=== PATIENT | female | born 1980 | race Caucasian/White ===

== ENCOUNTER 2023-03-14 06:13 | Emergency (ER) | payer MEDICARE, MEDICAID, SELFPAY ==
[2023-03-14 06:20] VITALS: BP 119/84; PULSE 89; RESP 16; TEMP 36.8; O2SAT 99; BMI 42.9
--- NOTE | 2023-03-14 06:43 | ED.GENADULT ---
HPI - General Adult General Chief complaint: Abdominal Pain Stated complaint: Abd pain Time Seen by Provider: 03/14/23 06:38 Source: patient Mode of arrival: ambulatory Limitations: no limitations History of Present Illness HPI narrative: Patient is a 42 year old assigned female at with no reported medical history presenting to the emergency department today with left upper abdominal pain and blood in her urine. Patient states that over the last 2 days she has had left upper quadrant abdominal pain. Patient states that she was seen at the urgent care where they tested her urine and found blood. Patient states they recommended she come to the ER for further evaluation. Patient denies any dizziness, lightheadedness, nausea, vomiting, fever, chills, blurry vision, double vision, loss of vision, chest pain, difficulty breathing, shortness of breath, back pain, night sweats, pain with urination, increased urinary frequency, increased urinary urgency, blood in her stool, syncope or a near syncopal episode, recent trauma or falls, bowel incontinence, bladder incontinence, bowel retention, bladder retention, or any other complaints at this time. Onset (ago): day(s) (2) Location: abdomen Severity: mild Severity scale (1-10): 3 Quality: aching Pain Consistency: constant Relieving factors: none Exacerbating factors: none Associated symptoms: denies other symptoms Treatments prior to arrival: none Related Data Allergies Allergy/AdvReac Type Severity Reaction Status Date / Time codeine Allergy Unknown RASH-FACE Unverified 02/23/20 15:18 Penicillins Allergy Unknown RASH-FACE Unverified 02/23/20 15:18 sulfamethoxazole Allergy Unknown UNKNOWN Unverified 02/23/20 15:18 [From Bactrim] trimethoprim [From Bactrim] Allergy Unknown UNKNOWN Unverified 02/23/20 15:18 Review of Systems Constitutional: Constitutional: Reports no additional constitutional complaints, Denies chills, Denies fever(s) and Denies night sweats Eyes: Eyes: Reports no additional eye complaints, Denies blurry vision, Denies change in vision, Denies diplopia, Denies eye discharge, Denies loss of vision and Denies eye pain ENT: Denies dizziness Cardiovascular: Cardiovascular: Reports no additional cardiovascular complaints, Denies chest pain, Denies lightheadedness, Denies Loss of Consciousness and Denies dyspnea Respiratory: Respiratory: Reports no additional respiratory complaints and Denies dyspnea Gastrointestinal: Gastrointestinal: Reports no additional gastrointestinal complaints, Reports abdominal pain, Denies melena, Denies hematochezia, Denies change in bowel habits and Denies change in stool character Genitourinary: Genitourinary: Reports hematuria, Denies urinary frequency, Denies dysuria, Denies urinary incontinence, Denies urinary hesitancy and Denies urinary urgency Musculoskeletal: Musculoskeletal: Reports no additional musculoskeletal complaints, Denies numbness and Denies tingling Neurologic: Denies dizziness, Denies loss of vision, Denies numbness and Denies tingling Psychiatric: Psychiatric: Reports no additional psychiatric complaints Endocrine: Endocrine: Reports no additional endocrine complaints Hematologic/Lymphatic: Hematologic/Lymphatic: Reports no additional hematologic/lymphatic complaints Allergic/Immunologic: Allergic/Immunologic: Reports no additional allergic/immunologic complaints PMFSH Past Medical History Attestation statement: The following information was validated with the patient. Source: old records reviewed and nursing notes reviewed Social History Social History Smoked in Last 30 Days: No Use of substances other than those prescribed or required for medical reasons: No Advance Directives: No Advance Directives Information Provided: Yes Physical Exam ED Vital Signs: Vital Signs - 24 hr 03/14/23 06:20 03/14/23 08:37 Temperature 98.2 F Pulse Rate 89 68 Respiratory Rate 16 16 Blood Pressure 119/84 125/83 Pulse Oximetry 99 99 Oxygen Delivery Method Room Air Room Air BMI result Body Mass Index 42.9 Const General: cooperative, no acute distress, alert and awake Nutritional Appearance: well nourished Orientation/consciousness: patient oriented x3 Limitations: no limitations [facility] Head: Yes normal to inspection and Yes atraumatic Ears: hearing grossly normal bilaterally and external ears normal General nose exam: Normal external nose present, no nasal discharge noted and no epistaxis Face and sinus: Yes normal facial exam, No abrasion and No laceration Mouth: Normal oral and palatal mucosa present, no drooling and no muffled voice Eyes General: appearance normal, both eyes and all related structures Periorbital: periorbital findings normal Eyelids: Yes eyelids normal Conjunctivae: conjunctivae normal Pupils: Equal, round and reactive pupils present EOM: EOMs intact bilaterally Neck Neck: Yes normal visual inspection, Yes full ROM and Yes no lymphadenopathy Chest Chest palpation & inspection: normal inspection of the chest Resp Effort & Inspection: normal respiratory effort and able to speak in complete sentences Auscultation: clear to auscultation bilaterally Cardio Rate: regular rate Rhythm: regular rhythm GI Inspection: Yes normal to inspection Palpation (GI): Soft to palpation, not firm, nontender, no guarding and not rigid Neuro General: patient oriented x3 and moves all extremities Cranial nerves: Yes Equal, round and reactive pupils present Cognition (Neuro): normal cognition Motor exam (neuro): 5/5 motor strength present throughout Sensory Exam: Normal double simultaneous stimulation for sensation Coordination: [id number] test normal Extrem General: Yes normal to inspection, Yes full ROM and Yes capillary refill normal Psych Appearance: grossly normal Mental Status: mental status grossly normal Affect: normal affect Attitude: cooperative Thought process: Normal thought process present Thought content: Normal thought content present Insight: Good insight present (Psych) Medical Decision Making Medical Decision Making MDM Narrative: Patient is a 42 year old assigned female at with no reported medical history presenting to the emergency department today with left upper quadrant abdominal pain and blood in her urine. Patient's physical exam was unremarkable. Patient's blood work was unremarkable. Patient's urine showed a possible infection but not evident enough to treat before cultures result. Patient's abdomen/pelvis CT showed no acute process. I explained my physical exam findings as well as all test results to the patient. I answered all questions asked by the patient. I stressed the importance of the patient taking her medication as prescribed. I stressed the importance of the patient following up with her primary care provider and GI specialist. I stressed the importance of the patient returning to the emergency department immediately if her symptoms were to worsen or if she were to develop any dizziness, shortness of breath, difficulty breathing, chest pain, blurry vision, loss of vision, nausea, vomiting, abdominal pain, fever, chills, back pain, or any other complaints. Patient verbalized agreement and understanding with this treatment plan and discharge. Differential Diagnosis Differential Diagnoses: The differential diagnosis associated with the presentation includes Abdominal pain PUD Gastritis Gastroenteritis UTI Admission/Observation Consideration of admission/observation: Escalation of care including admission/observation considered Patient would have been admitted to the hospital had her work up had any findings where hospital admission was appropriate and her clinical presentation warranted hospital admission. Lab Data [facility] Lab Attestation statement: I reviewed the patient's lab results. My interpretation of these studies and their corresponding values is that they are grossly normal with the exception of a possibly infected urine. 03/14/23 06:46 03/14/23 06:46 Labs: Lab Results 03/14/23 03/14/23 Range/Units 06:46 06:48 WBC 7.0 (4.8-10.8) X10*3/uL RBC 4.40 (4.20-5.50) X10*6/uL Hgb 14.2 (12.0-16.0) g/dl Hct 40.7 (37.0-47.0) % MCV 92.5 (80.0-98.0) fL MCH 32.3 (27.0-33.0) pg MCHC 34.9 (31.0-35.0) g/dl RDW 12.7 (11.0-16.0) % Plt Count 269 (160-400) X10*3/uL MPV 9.5 (9.4-12.3) fL Immature Gran % (Auto) 0.3 (0.0-0.4) % Neut % (Auto) 44.1 L (45-73) % Lymph % (Auto) 45.4 H (20-40) % [place] % (Auto) 5.9 (2-11) % Eos % (Auto) 3.7 (0-4) % Baso % (Auto) 0.6 (0-2) % Lymph # (Auto) 3.2 (1.2-4.9) X10*3/uL [place] # (Auto) 0.4 (0.1-1.2) X10*3/uL Eos # (Auto) 0.3 (0.0-0.4) X10*3/uL Baso # (Auto) 0.0 (0.0-0.2) X10*3/uL Abs Immat Gran (auto) 0.02 (0.00-0.03) X10*3/uL Absolute Neuts (auto) 3.1 (2.0-8.3) x10*3/uL Absolute Nucleated RBC 0.000 (0.0-0.012) X10*3/uL Nucleated RBC % (auto) 0.0 (0.0-0.2) /100WBC Sodium 136 (135-145) mmol/L Potassium 3.9 (3.3-5.1) mmol/L Chloride 104 (96-108) mmol/L Carbon Dioxide 24 (22-29) mmol/L Anion Gap 12 (12-20) BUN 12 (9-16) mg/dL Creatinine 0.69 (0.5-1.4) mg/dL Estim Creat Clear Calc 133.7 Estimated GFR > 60 Random Glucose 99 (60-115) mg/dL Calcium 8.6 (8.4-10.2) mg/dL Total Bilirubin 0.6 (0.0-1.0) mg/dL Direct Bilirubin 0.2 (0.0-0.5) mg/dL AST 24 (5-31) U/L ALT 37 H (0-31) U/L Alkaline Phosphatase 108 (39-117) U/L Total Protein 7.2 (6.5-8.0) g/dL Albumin 3.9 (3.5-5.0) g/dL Lipase 13 (8-78) U/L Urine Color Dark Yellow Urine Appearance Cloudy Urine pH 6.0 (5.0-9.0) Ur Specific [place] >= 1.030 H (1.005-1.025) Urine Protein Trace (Neg-Trace) mg/dL Urine Glucose (UA) Negative (Negative) mg/dL Urine Ketones Trace (Negative) mg/dL Urine Blood Trace H (Negative) Urine Nitrite Negative (Negative) Ur Leukocyte Esterase Negative (Negative) Urine RBC 6-10 H (0-2) /HPF Urine WBC 0-5 (0-5) /HPF Ur Squamous Epith Cells 3-5 (0-2) /HPF Urine Bacteria Trace (None Seen) Hyaline Casts 0-2 (0-2) /LPF Urine Test NEGATIVE (NEGATIVE) Independent Interpretation I performed an independent interpretation of an: CT Scan Interpretation: My interpretation is in agreement with the radiologist's impression of this imaging study. EXAMINATION: CT ABDOMEN AND PELVIS WITHOUT CONTRAST CLINICAL INFORMATION: Flank pain. COMPARISON: CT scan of the abdomen and pelvis November 2017 TECHNIQUE: Multidetector volumetric imaging was performed from the superior aspect of the liver through the pubic symphysis. Sagittal and coronal reformatted images were obtained on the technologist's workstation. This CT examination was performed using dose optimization techniques as appropriate, variously including the following: *Automated exposure control *Adjustment of mA and/or kV according to patient size (this includes techniques or standardized protocols for targeted exams where dose is matched to indication/reason for exam; i.e. extremities or head) *Use of iterative reconstruction technique DLP: 806 mGy-cm FINDINGS: LUNG BASES: The visualized lung bases are unremarkable. LIVER, GALLBLADDER, AND BILIARY TREE: The liver is normal in size, shape, and attenuation. No focal hepatic lesion or biliary ductal dilatation is present. Postsurgical changes related to cholecystectomy. PANCREAS: Unremarkable. SPLEEN: Unremarkable. ADRENAL GLANDS: Unremarkable. KIDNEYS AND URETERS: The kidneys are normal in size, shape, and attenuation. No hydronephrosis, hydroureter, or calculi seen. No perinephric stranding. BLADDER: Unremarkable. GASTROINTESTINAL TRACT: Status post gastric surgery unchanged. Small bowel normal. Large bowel are normal. Appendix normal ABDOMINAL WALL: Normal. LYMPH NODES: Normal. VASCULAR: Unremarkable. PELVIC VISCERA: Intrauterine device noted. Otherwise unremarkable. No masses. OSSEOUS STRUCTURES: Lumbar postsurgical changes present at the radial [address]/CT abdomen pelvis wo IV con IMPRESSION: No acute abnormality. No urinary tract calculi or pathology identified Fleischner guidelines were followed. Dictated By: Ang Han MD Signed By: Electronically signed by Ang Han MD 03/14/23 0856 Radiology Impression Discussion of test interpretation with radiology: I have reviewed the radiologist's reading. Discharge Plan Discharge Clinical Impression: Abdominal pain Patient Disposition: Home, Self-Care Instructions: Abdominal Pain (ED) Additional Instructions: Follow up with your primary care provider and a GI specialist. Return to the emergency department immediately if your symptoms worsen or if you develop any dizziness, shortness of breath, difficulty breathing, chest pain, blurry vision, loss of vision, nausea, vomiting, abdominal pain, fever, chills, back pain, or any other complaints. Referrals: [facility] [Provider Group] (Call to establish and follow up with a GI specialist.) Katherine Benitez MD [Primary Care Provider] - Stand Alone Forms: Work/School Release Print Language: Beninese
[2023-03-14 08:37] VITALS: BP 125/83; PULSE 68; RESP 16; O2SAT 99
== END 2023-03-14 09:12 | disposition home or self-care (01) ==
PROVIDERS: Emergency Provider Emergency Medicine Emergency Medical Services; PCP Internal Medicine
DX: R10.9 Unspecified abdominal pain (principal)
CPT/HCPCS: 36415; 74176; 80048; 80076; 81001; 81025; 83690; 85025; 99284

== ENCOUNTER 2023-03-15 10:37 | Emergency (ER) | payer MEDICARE, MEDICAID, SELFPAY ==
[2023-03-15 10:42] VITALS: BP 140/106; PULSE 113; RESP 22; TEMP 36.8; O2SAT 99; BMI 41.4
--- NOTE | 2023-03-15 11:21 | ED.ABDPAIN ---
HPI - Abdominal Pain General Chief Complaint: Abdominal Pain Stated Complaint: Abd pain Time Seen by Provider: 03/15/23 11:00 Source: patient Mode of arrival: ambulatory Limitations: no limitations History of Present Illness HPI narrative: Patient is a 42-year-old female presents emergency department for evaluation of left upper quadrant abdominal pain for the past 3 days. She states she was seen in the emergency department yesterday after coming from urgent care where she was advised that she had microscopic hematuria. She states that she had a CT scan yesterday of her abdomen which revealed no acute pathology. She was ultimately discharged home. Was advised to come back to emergency department should her pain change or worsen. She reports that her pain is much worse today and she was unable to sleep last night. It does not radiate, she is unable to to identify exacerbating or alleviating factors, she denies chest pain, endorses shortness of breath only during periods of intense pain. Does not seem to worsen with deep respiration. She appears significantly uncomfortable, tearful during my initial examination. She denies dizziness, nausea, vomiting, lower abdominal pain, symptoms, constipation, diarrhea, hematochezia, melena. Denies any past history of similar pain. Related Data Allergies Allergy/AdvReac Type Severity Reaction Status Date / Time codeine Allergy Unknown RASH-FACE Verified 03/15/23 10:44 Penicillins Allergy Unknown RASH-FACE Verified 03/15/23 10:44 sulfamethoxazole Allergy Unknown UNKNOWN Verified 03/15/23 10:44 [From Bactrim] trimethoprim [From Bactrim] Allergy Unknown UNKNOWN Verified 03/15/23 10:44 Review of Systems Review of Systems Yes all other systems are reviewed and are negative [facility] Past Medical History Attestation statement: The following information was validated with the patient. Source: old records reviewed Social History Social History Advance Directives: No Advance Directives Information Provided: Yes Physical Exam ED Vital Signs: Vital Signs - 24 hr 03/15/23 10:42 03/15/23 12:13 03/15/23 15:27 Temperature 98.2 F Pulse Rate 113 H 93 66 Respiratory Rate 22 H 22 H 16 Blood Pressure 140/106 H 144/95 H 123/84 Pulse Oximetry 99 96 98 Oxygen Delivery Method Room Air Room Air Room Air 03/15/23 19:25 Temperature 97.4 F Pulse Rate 62 Respiratory Rate 14 Blood Pressure 133/8 L Pulse Oximetry 99 Oxygen Delivery Method Room Air BMI result Body Mass Index 41.4 Appearance: Alert.?Oriented to person, place and time. No acute distress.?Normal affect. Eyes: Pupils equal, round and reactive to light.? ENT: Pharynx normal.?? Neck: Normal inspection.? Neck supple.?? CVS: Heart sounds normal. Normal heart rate and rhythm.? Pulses normal.?? Respiratory: No respiratory distress.? Lung sounds clear to auscultation bilaterally?? Abdomen: Soft with significant left upper quadrant tenderness upon even light palpation. No rigidity. No guarding. Normoactive bowel sounds. ? Skin: Skin warm and dry.? Normal skin color.? Extremities: No lower extremity edema. Neuro: Moves all extremities spontaneously. Sensation intact bilaterally. No focal neuro deficits. Ambulates with normal steady gait. Course Reevaluation(s) Reevaluation #1: GI cocktail did not alleviate pain, trialed Toradol 30 mg with significant improvement. The pain is not completely resolved however. Her D-dimer is negative not consistent with pulmonary embolism. LS CTA, no hypoxia, no respiratory symptoms, at this time less likely suspecting pneumonia, lung bases at CT abdomen pelvis yesterday were clear.. Of note she does have a mild elevation in her AST and ALT when compared to yesterday, she has a history of cholecystectomy, at this time plan to obtain ultrasound to evaluate further, possible CBD stone. Time: 13:31 Reevaluation #2: Ultrasound pending at this time, signed out to oncoming provider; Christine JAIMES. Time: 19:18 Reevaluation #3: Patient received in sign-out and tenderness shift pending ultrasound which does not show any acute pathology. Patient is requesting discharge at this time is reports feeling better and she will be discharged. Medical Decision Making Medical Decision Making MDM Narrative: Patient is a 42-year-old female presenting to emergency department for evaluation of left upper quadrant pain as per HPI. At the time my examination she appears significantly uncomfortable. She had a CT scan of the abdomen and pelvis yesterday which revealed no acute process. Concern at this time for gastritis be PUD V gastroenteritis. She is not hypoxic, she is mildly tachypneic and tachycardic, initially hypertensive, which may be in response to pain, have a lower clinical suspicion for pneumonia, will obtain D-dimer to exclude pulmonary embolism. Labs obtained from triage revealing no leukocytosis, no anemia, unremarkable BMP. Lipase is within normal limits. AST and ALT are mildly elevated when compared to levels obtained yesterday. Will trial GI cocktail Differential Diagnosis Differential Diagnoses: The differential diagnosis associated with the presentation includes (As noted above) Admission/Observation Consideration of admission/observation: Escalation of care including admission/observation considered (Considered admission for severe abdominal pain, see course narrative for further detail) Lab Data MDM Lab Attestation statement: I reviewed the patient's lab results. (As noted above) 03/15/23 10:49 03/15/23 10:49 Labs: Lab Results 03/15/23 03/15/23 03/15/23 Range/Units 10:49 12:25 12:41 WBC 8.5 (4.8-10.8) X10*3/uL RBC 4.74 (4.20-5.50) X10*6/uL Hgb 15.1 (12.0-16.0) g/dl Hct 43.4 (37.0-47.0) % MCV 91.6 (80.0-98.0) fL MCH 31.9 (27.0-33.0) pg MCHC 34.8 (31.0-35.0) g/dl RDW 12.6 (11.0-16.0) % Plt Count 297 (160-400) X10*3/uL MPV 8.9 L (9.4-12.3) fL Immature Gran % (Auto) 0.4 (0.0-0.4) % Neut % (Auto) 42.9 L (45-73) % Lymph % (Auto) 47.8 H (20-40) % [place] % (Auto) 5.8 (2-11) % Eos % (Auto) 2.7 (0-4) % Baso % (Auto) 0.4 (0-2) % Lymph # (Auto) 4.1 (1.2-4.9) X10*3/uL [place] # (Auto) 0.5 (0.1-1.2) X10*3/uL Eos # (Auto) 0.2 (0.0-0.4) X10*3/uL Baso # (Auto) 0.0 (0.0-0.2) X10*3/uL Abs Immat Gran (auto) 0.03 (0.00-0.03) X10*3/uL Absolute Neuts (auto) 3.7 (2.0-8.3) x10*3/uL Absolute Nucleated RBC 0.000 (0.0-0.012) X10*3/uL Nucleated RBC % (auto) 0.0 (0.0-0.2) /100WBC D-Dimer High Sensitivty < 150 NG/ML Sodium 138 (135-145) mmol/L Potassium 4.1 (3.3-5.1) mmol/L Chloride 106 (96-108) mmol/L Carbon Dioxide 22 (22-29) mmol/L Anion Gap 14 (12-20) BUN 12 (9-16) mg/dL Creatinine 0.79 (0.5-1.4) mg/dL Estim Creat Clear Calc 114.4 Estimated GFR > 60 Random Glucose 111 (60-115) mg/dL Calcium 9.7 D (8.4-10.2) mg/dL Total Bilirubin 0.4 (0.0-1.0) mg/dL Direct Bilirubin 0.1 (0.0-0.5) mg/dL AST 74 H (5-31) U/L ALT 74 H (0-31) U/L Alkaline Phosphatase 115 (39-117) U/L Total Protein 8.0 (6.5-8.0) g/dL Albumin 4.1 (3.5-5.0) g/dL Lipase 13 (8-78) U/L Urine Color Yellow Urine Appearance Clear Urine pH 5.5 (5.0-9.0) Ur Specific [place] 1.025 (1.005-1.025) Urine Protein Negative (Neg-Trace) mg/dL Urine Glucose (UA) Negative (Negative) mg/dL Urine Ketones Negative (Negative) mg/dL Urine Blood Negative (Negative) Urine Nitrite Negative (Negative) Ur Leukocyte Esterase Negative (Negative) Urine Test NEGATIVE (NEGATIVE) Medications Administered Discontinued Medications Generic Name Dose Route Start Last Admin Trade Name Freq PRN Reason Stop Dose Admin Famotidine 20 mg 03/15/23 11:20 03/15/23 11:24 Famotidine 20 Mg Tablet PO 03/15/23 11:21 20 mg ONCE ONE Administration Ketorolac Tromethamine 30 mg 03/15/23 12:08 03/15/23 12:23 Ketorolac Tromethamine 30 Mg/Ml Vial IVPUSH 03/15/23 12:09 30 mg ONCE ONE Administration Lidocaine/Diphenhydr/Alum/Mg/Simeth 10 ml 03/15/23 11:16 03/15/23 11:24 Mag&Al/Sim/Diphenhyd/Lidocaine 10 Ml Oral.Susp PO 03/15/23 11:17 10 ml ONCE ONE Administration Protocol Discharge Plan Discharge Clinical Impression: Abdominal pain Patient Disposition: Home, Self-Care Instructions: Abdominal Pain (ED) Additional Instructions: Follow-up with your primary doctor. You may also follow-up with GI given your recurrent abdominal pain Use ibuprofen or Tylenol as needed for pain Referrals: Jaciel Wells MD [Physician] - (upped abdominal pain, negative CT abdomen) Stand Alone Forms: Work/School Release Interventions: ED Discharge Assessment Last Done: 03/15/23 19:29 Discharge Date/Time: 03/15/23 19:29
--- NOTE | 2023-03-15 11:28 | PC.NURSE ---
Pt in room rocking back and worth holding her stomach, pt took medications ordered with no issues. She is reporting abdominal pain worsening over this morning. Pt aware she needs to give a urine sample, awaiting void
[2023-03-15 12:13] VITALS: BP 144/95; PULSE 93; RESP 22; O2SAT 96
--- NOTE | 2023-03-15 12:16 | PC.NURSE ---
Provider made aware of patient pain with no relief post PO medications, pt continues to be tearful, rolling back in worth in bed. IV placed, D-dimer sent, IV pain medication administered per order
[2023-03-15 15:27] VITALS: BP 123/84; PULSE 66; RESP 16; O2SAT 98
[2023-03-15 19:25] VITALS: BP 133/8; PULSE 62; RESP 14; TEMP 36.3; O2SAT 99
--- NOTE | 2023-03-15 19:28 | PC.NURSE ---
Pt self removed IV line. Dressing applied to the area. Discharge instructions provided to pt. Pt verbalizes understanding.
== END 2023-03-15 19:29 | disposition home or self-care (01) ==
PROVIDERS: Emergency Provider Emergency Medicine; PCP Internal Medicine
DX: R10.12 Left upper quadrant pain (principal); R31.9 Hematuria, unspecified; Z79.899 Other long term (current) drug therapy
CPT/HCPCS: 36415; 76700; 80048; 80076; 81003; 81025; 83690; 85025; 85379; 96374; 99284; J1885

== ENCOUNTER 2024-10-06 13:22 | Outpatient (REF) | payer OTHER, SELFPAY ==
[2024-10-06 14:12] LABS: Anion Gap 11 (12-20); Blood Urea Nitrogen 13 mg/dL (9-16); Calcium 8.6 mg/dL (8.4-10.2); Carbon Dioxide 22 mmol/L (22-29); Chloride 109 mmol/L (96-108); Estimated Glomerular Filt Rate > 60; Glucose Random 78 mg/dL (60-115); Potassium 4.1 mmol/L (3.3-5.1); Sodium 138 mmol/L (135-145)
[2024-10-06 14:28] LABS: TSH reflex Free T4 0.71 uIU/mL (0.32-4.0)
[2024-10-06 14:41] LABS: Vitamin B12 226 pg/mL (200-900)
--- OUTSIDE RECORDS SUMMARY | 2024-10-06 15:51 | XMS_ITS | Clinical Summary ---
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 Active acetaminophen (TYLENOL 8 HOUR) 650 mg 8 hr tablet Take 1 Tablet by mouth every 8 hours as needed for Pain. Active esomeprazole (NexIUM) [address] capsule Take 1 Capsule by mouth every morning (before breakfast) for 360 days. Active secukinumab (Cosentyx UnoReady Pen) 300 mg/2 mL (150 mg/mL) pen injector every 30 days. Activ e Active Problems Problem Noted Date Diagnosed Date Anxiety and depression 06/09/2024 Overview (06/09/2024): Psych prescribing Angiolipoma of kidney 06/09/2024 Overview (06/09/2024): 0.4 cm right interpolar to lower pole hypoechoic, nonvascular renal focus seen on abdominal ultrasound June 2019. 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 Referred to nephrology. Menorrhagia with irregular cycle 12/03/2023 Overview (06/09/2024): Last Assessment & Plan: Well managed currently with Mirena, but due to come out and given dysmenorrhea is not controlled, she desires a different method. Dysmenorrhea 12/03/2023 Overview (06/09/2024): Last Assessment & Plan: I explained to Bharti that given the timing of her pain, it is likely that a hysterectomy will be beneficial, but duet o several organ systems in the same area, sometimes this is not the case. She was counseled that she could try an oral progestin correction to avoid surgery, but she declines. She was counseled that we would plan for KELLY, BS, cysto. Leave ovaries in place for hormonal support. Discussed time off from exercise and work. She was interested in getting this scheduled. She is open to using a progestin while planning for hyst to help with debilitating pain that inteferes with her work. Given Rx for Aygestin. Discussed most common SE including BTB, headache and breast tenderness which are usually self limited. She voiced understanding and agreed. We will obtain a pelvic US as she has not had one in years to ensure no pathology causing her dysmenorrhea. Hair loss 07/22/2022 Pre-diabetes 02/06/2020 Bulging lumbar disc 01/11/2020 Overview (06/09/2024): Noted on mri 12/29/2019 Marginal ulcer 03/03/2018 Other complications of other bariatric procedure 02/18/2018 Hydradenitis 01/04/2018 Overview (06/09/2024): [facility]s [facility] Pilonidal disease 01/04/2018 Submandibular lymphadenopathy 09/24/2017 Severe obesity (BMI 35.0-39. 9) with comorbidity (CMS/HCC V24, CMS/HCC V28) 06/07/2014 Elevated LFTs 11/30/2013 IBS (irritable bowel syndrome) 10/03/2010 Lumbar spondylosis 04/15/2010 Overview (06/09/2024): Last Assessment & Plan: Patient follows up after her lumbar MRI to go over the images, she has persistent right low back pain that radiates down the right posterior leg. She has been trying to stay active and workout at the gym, has been working on weight loss, doing stretching and core exercises. Certain activities cause a pinching sensation in the right leg. If she overdoes it and is active she notes increased pain. She did well after her L4-[address] Aggarwal, states her spine felt like an accordion, that sensation went away after the lumbar fusion. Right now sitting in the office she would rate her pain a 4/10, most days 5 or 6/10, on an active day 7-01/15. She has had cortisone injections in the past, did not see good results afterward for pain relief. Ms. Joya had MRI lumbar spine with and without contrast 09/09/2023 at [facility] with postop changes and fusion with hardware L4-5, it appears she has right L5-S1 annular tear, although not mentioned in the report. I reviewed the images in detail with the patient on the computer. Dr. Cortes had reviewed the MRI with me prior to patient coming in. Ms. Joya has low back and right leg pain, no significant stenosis on MRI noted, looks like she might have right L5-S1 annular tear. Dr. Cortes was recommending right L5-S1 TFE, patient would like to try other conservative treatment options, we discussed aquatic PT, ground PT, acupuncture. Patient would like to try aquatic PT and acupuncture, prescription provided. All questions answered. She will call after trying the aquatic PT with an update, sooner if she notes any worsening symptoms. Dysphagia 08/14/2009 Erosive esophagitis 08/14/2009 Schatzki's ring 08/14/2009 Diaphragmatic hernia 08/14/2009 Overview (06/09/2024): IMO update Low back pain 07/11/2009 Encounters Date Type Department Care Team Description 08/29/2024 6:55 AM EDT - 08/29/2024 11:59 PM EDT Hospital Encounter [facility] CT Scan [address] [place] [phone] Memory loss Discharge Disposition: Home or Self Care 08/24/2024 4:00 PM EDT Office Visit Adult Medicine [address] [phone] Can Wall MD Memory loss (Primary Dx) from Last 3 Months Immunizations Name Administration Dates Next Due Influenza trivalent, 0.5mL, preservative free (Fluarix; FluLaval; Fluzone) ages 6mo and older (Afluria) 3 years and older 03/14/2020,02/16/2019 Influenza, Unspecified 03/14/2020 MMR, measles mumps and rubel la Live (Priorix; M-M-R II) 12mo and older 07/28/2018,11/14/2013 PPD Test 07/14/2018,,08/10/2013,2010,08/07/2008 Td Tetanus diptheria (Tdvax) 7yo and older 08/18/2018 Tdap Tetanus diptheria acell ular pertussis (Boostrix; Adacel) 7yo and older 08/15/2020,08/07/2008 Surgical History Surgery Date Site/Laterality Comments OTHER SURGICAL HISTORY PROCEDURE: MO EXCISION PILONIDAL CYST/SINUS COMPLICATED OTHER SURGICAL HISTORY PROCEDURE: MO PUNCTURE ASPIRATION CYST BREAST EACH ADDL CYST CHOLECYSTECTOMY PROCEDURE: HISTORICAL CHOLECYSTECTOMY TUBAL LIGATION PROCEDURE: HISTORICAL TUBAL LIGATION WISDOM TOOTH EXTRACTION PROCEDURE: HISTORICAL WISDOM TEETH EXTRACTION BREAST SURGERY Right PROCEDURE: MO UNLISTED PROCEDURE BREAST; COMMENT: about 10 yrs ago pt unsure exactly what was done ESOPHAGOGASTRODUODENOSCOPY 08/14/09 PROCEDURE: MO ESOPHAGOGASTRODUODENOSCOPY TRANSORAL DIAGNOSTIC; COMMENT: Schatzki ring, dilated to 50 Venezuelan; hiatus hernia and esophagitis OTHER SURGICAL HISTORY 08/27/10 PROCEDURE: MO EGD DILATION GASTRIC/DUODENAL STRICTURE; COMMENT: Same, dilated to 50 Venezuel[place] ESOPHAGOGASTRODUODENOSCOPY 07/10/16 PROCEDURE: MO ESOPHAGOGASTRODUODENOSCOPY TRANSORAL DIAGNOSTIC; COMMENT: 1 cm ulcer in vestibule of BII anastomosis; non-critical Schatzki ring and small HH ESOPHAGOGASTRODUODENOSCOPY 07/30/2017 PROCEDURE: MO ESOPHAGOGASTRODUODENOSCOPY TRANSORAL DIAGNOSTIC; COMMENT: 1.5 cm ulcer in vestibule of B11 anastomosis CHOLECYSTECTOMY PROCEDURE: MO LAPAROSCOPY SURG CHOLECYSTECTOMY BACK SURGERY 01/23/2020 Bilateral PROCEDURE: HISTORICAL BACK SURGERY; COMMENT: fusion of L4-L5 by Dr. Aggarwal Medical History Medical History Date Comments Depression 2009 DX:Depression Inflammatory bowel syndrome 2009 DX:I nflammatory bowel syndrome Anxiety and depression DX:Anxiet y and depression Degenerative arthritis of lumbar spine 04/15/2010 DX:Degenerative arthritis of lumbar spine S/P tubal ligation DX:S/P tubal ligation Angiolipoma of kidney DX:Angioli tova of kidney Hydradenitis 01/04/2018 DX:Hydradenitis; COMMENT: Follows [facility] Tobacco use disorder 10/08/2012 DX:Tobacco use disorder Family History Medical History Relation Name Comments Breast cancer Aunt 1 maternal; age 30s Colon cancer Aunt 2 same aunt with breast cancer Hypertension Brother 1 Coronary artery disease Father late 20s, HTN Hyperlipidemia Father hypertension, valve replacement Other: Cancer Other Maternal Grandmother cancer on lip Hypertension Mother Kidney cancer Uncle Cancer of Small Bowel Neg Hx Ovarian cancer Neg Hx Pancreatic cancer Neg Hx Uterine cancer Neg Hx Relation Name Status Comments Aunt 1 breast cancer a t 30 Aunt 2 cervical cancer at 26 Brother 1 Brother 2 Alive hyperchol Father Alive depression, HTN , hyperchol, heart valve replacement Maternal Grandmother Mother Alive depression Uncle Alive Social History Tobacco Use Types Packs/Day Years Used Date Smoking Tobacco: Former Cigarettes Q uit: 07/09/2019 Smokeless Tobacco: Never Tobacco Cessation:Counseling Given: Not Answered Alcohol Use Standard Drinks/Week Comments No 0 (1 standard drink = 0.6 oz pur e alcohol) Comments Unknown Sex and Gender Information Value Date Recorded Sex Assigned at Not on file Legal Sex Female 3:58 AM EST Gender Identity Female 08/25/2024 8:59 AM EDT Sexual Orientation Not on file Obstetrics History Last Filed Vital Signs Vital Sign Reading Time Taken Comments Blood Pressure 120/78 08/24/2024 3:57 PM EDT Pulse 80 08/24/2024 3:57 PM EDT Temperature 35.9 ??C (96.6 ??F) 08/24/2024 3:57 PM ED T Respiratory Rate 20 08/24/2024 3:57 PM EDT Oxygen Saturation - - Inhaled Oxygen Concentration - - Weight 95.3 kg (210 lb) 08/24/2024 3:57 PM EDT Height 160 cm (5' 3 ) 08/24/2024 3:57 PM EDT Body Mass Index 37.2 08/24/2024 3:57 PM EDT Plan of Treatment Upcoming Encounters Date Type Department Care Team (Late st Contact Info) Description 10/13/2024 7:45 AM EDT [place] [facility] [place] [address] [phone] Katherine Benitez MD [address], [place] 02/02/2025 7:30 AM EDT Appointment Radiology Department - [address] [phone] Health Maintenance Due Date Last Done Comments Hepatitis A Vaccines (1 of 2 - Risk 2-dose series) 2001 Hepatitis B Vaccines (1 of 3 - 19+ 3-dose series) 2001 Depression Screening 05/11/2022 Medicare Annual Wellness Visit 05/11/2022 Social Influencers of Health Screening 05/11/2022 COVID-19 Vaccine ( season) 2024 05/20/2021, 07/25/2020, 06/29/2020 Influenza Vaccine (Season Ended) 2025 03/14/2020, 03/14/2020, 02/16/2019 Breast Cancer Screening 02/01/2026 02/02/20 24, 02/02/2024, 10/15/2021, Additional history exists Cholesterol Screening (Lipid Panel) 08/11/2028 08/12/2023 Cervical Cancer Screening: HPV 11/03/2028 11/04/2023 DTaP,Tdap,and Td Vaccines (4 - Td or Tdap) 08/15/2030 08/15/2020, 08/18/2018, 08/07/2008 MMR Vaccines Aged Out 07/28/2018, 11/14/2013 No lo nger eligible based on patient's age to complete this topic HIV Screening Completed 11/04/2023, 11/04/2023 Hepatitis C Screening Completed 11/04/2023 HIB Vaccines Aged Out No longer eligi ble based on patient's age to complete this topic HPV Vaccines Aged Out No longer eligi ble based on patient's age to complete this topic IPV Vaccines Aged Out No longer eligi ble based on patient's age to complete this topic Meningococcal ACWY Vaccine Aged Out N o longer eligible based on patient's age to complete this topic Meningococcal B Vaccine Aged Out No l onger eligible based on patient's age to complete this topic Pneumococcal Vaccine: Pediatrics (0 to 5 Years) and At-Risk Patients (6 to 64 Years) Aged Out No longer eligible based on patient's age to complete this topic RSV Immunization Patients Under 20 months Aged Out No longer eligible based on patient's age to complete this topic Varicella Vaccines Aged Out No longer eligible based on patient's age to complete this topic Procedures Procedure Name Priority Date/Time Associated Diagnosis Comments CT HEAD WO CONTRAST Routine 08/29/2024 7 :04 AM EDT Memory loss SCREENING MAMMOGRAPHY BI 2-VIEW BREAST INC CAD Routine 02/02/2024 8:08 AM EDT Encounter for screening mammogram for malignant neoplasm of breast HPV Routine 11/04/2023 HEPATITIS C SCREENING Routine 11/04/2023 HIV SCREENING Routine 11/04/2023 LIPID PANEL Routine 08/12/2023 from Last 3 Months or Most Recently Relevant to Health Maintenance Results * CT Head wo Contrast (08/29/2024 7:04 AM EDT) Anatomical Region Laterality Modality Head and Neck Computed Tomogra phy 08/29/2024 11:0 2 AM EDT Impressions 08/29/2024 11:04 AM EDT Impression: No significant intracranial abnormality identified. [facility] THEODORE ([id number]) -------- FINAL REPORT -------- Dictated By: Fany Guerrero Dictated Date: 08/29/2024 11:02 ET Assigned Physician: Fany Guerrero Reviewed and Electronically Signed By: Fany Guerrero Signed Date: 08/29/2024 11:04 ET Workstation ID: [id number] Transcribed By: Self Edit Transcribed Date: 08/29/2024 11:02 ET Narrative 08/29/2024 11:04 AM EDT History: Memory loss. Comparison: No comparison imaging at this institution. Technique: Contiguous axial images were obtained at 2.5 mm intervals through the posterior fossa and at 5 mm intervals through the remainder of the brain without intravenous contrast. DLP: 808.85 mGy/cm GE LightSpeed VCT Iterative reconstruction technique Findings: Mild generalized cerebral volume loss is demonstrated. Normal nava-white differentiation is maintained. No focal areas of abnormal brain parenchymal attenuation are seen. No abnormal intra- or extra-axial masses or fluid collections are demonstrated. There is no evidence of acute intracranial hemorrhage. Mucoperiosteal thickening is seen within the sphenoid sinus, consistent with mild sinusitis. The included portions of the paranasal sinuses are otherwise clear. The mastoids are well pneumatized. The calvarium is intact. Procedure Note Fany Guerrero MD - 08/29/2024 History: Memory loss. Comparison: No comparison imaging at this institution. Technique: Contiguous axial images were obtained at 2.5 mm intervalsthrough the posterior fossa and at 5 mm intervals through the remainder ofthe brain without intravenous contrast. DLP: 808.85 mGy/cm GE LightSpeed VCT Iterative reconstruction technique Findings: Mild generalized cerebral volume loss is demonstrated. Normal nava-whitedifferentiation is maintained. No focal areas of abnormal brainparenchymal attenuation are seen. No abnormal intra- or extra-axial masses or fluid collections aredemonstrated. There is no evidence of acute intracranial hemorrhage. Mucoperiosteal thickening is seen within the sphenoid sinus, consistentwith mild sinusitis. The included portions of the paranasal sinuses areotherwise clear. The mastoids are well pneumatized. The calvarium isintact. IMPRESSION: Impression: No significant intracranial abnormality identified. [employer] THEODORE ([id number]) -------- FINAL REPORT -------- Dictated By: Fany Guerrero Dictated Date: 08/29/2024 11:02 ET Assigned Physician: Fany Guerrero Reviewed and Electronically Signed By: Fany Guerrero Signed Date: 08/29/2024 11:04 ET Workstation ID: [id number] Transcribed By: Self Edit Transcribed Date: 08/29/2024 11:02 ET Can Wall MD IMG CT PROCEDURES Final Result * SCREENING MAMMOGRAPHY BI 2-VIEW BREAST INC CAD (02/02/2024 8:08 AM EDT) Anatomical Region Laterality Modality Radiographic Violetta ging 11/04/2023 11:1 5 AM EDT Narrative 02/03/2024 10:50 AM EDT This is a summary report. The complete report is available in the patient's medical record. If you cannot access the medical record, please contact the sending organization for a detailed fax or copy. BILATERAL 3D DIGITAL SCREENING MAMMOGRAM History: Routine screening. ??No current breast complaints. ??Family history of breast cancer in aunt Comparison: Multiple priors dating back to 05/25/2020 Technique: Bilateral full-field digital 3D mammography was performed using standard CC and MLO projections CAD was used to evaluate this mammogram. Findings: Density: ?? The breasts are heterogeneously dense which may obscure small masses-C RIGHT: No suspicious masses, groups of microcalcification or areas of architectural distortion identified. Stable typically benign parenchymal asymmetries LEFT: No suspicious masses, groups of microcalcifications or areas of architectural distortion identified. Stable typically benign parenchymal asymmetries IMPRESSION: : 1. ??No mammographic evidence of malignancy. BI-RADS Category 2 benign findings Recommendation: Routine annual screening mammography is recommended Procedure Note Jessie Suarez MD - 03/23/2024 This is a summary report. The complete report is available in thepatient's medical record. If you cannot access the medical record, pleasecontact the sending organization for a detailed fax or copy. BILATERAL 3D DIGITAL SCREENING MAMMOGRAM History: Routine screening. No current breast complaints. Family historyof breast cancer in aunt Comparison: Multiple priors dating back to 05/25/2020 Technique: Bilateral full-field digital 3D mammography was performed usingstandard CC and MLO projections CAD was used to evaluate this mammogram. Findings: Density: The breasts are heterogeneously dense which may obscure smallmasses-C RIGHT: No suspicious masses, groups of microcalcification or areas ofarchitectural distortion identified. Stable typically benign parenchymalasymmetries LEFT: No suspicious masses, groups of microcalcifications or areas ofarchitectural distortion identified. Stable typically benign parenchymalasymmetries IMPRESSION: : 1. No mammographic evidence of malignancy. BI-RADS Category 2 benign findings Recommendation: Routine annual screening mammography is recommended Ina Rivera CNM IMG XR PROCEDURES Final Res ult * Cervical Cancer Screening: HPV (11/04/2023) Pathologist [facility] Cervical Cancer Screening: HPV negative abstracted [facility] Provider HEALTH MAINTENANCE Final Result * HIV Screening (11/04/2023) [facility] HIV Screening abstracted Result [facility] Provider HEALTH MAINTENANCE Final Result * Hepatitis C Screening (11/04/2023) [facility] Hepatitis C Screening abstracted Result [facility] Provider HEALTH MAINTENANCE Final Result * Lipid panel (08/12/2023) [facility] LDL/HDL Ratio 3 0 - 4 Triglycerides 81 0 - 150 mg/dL Cholesterol 118 0 - 200 mg/dL HDL 43 >=40 mg/dL LDL Cholesterol 59 0 - 100 mg/dL Blood Venous blood specimen / Unknown Result [facility] Provider LAB BLOOD ORDERABLES Lina l Result from Last 3 Months or Most Recently Relevant to Health Maintenance Insurance MEDICARE 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
== END 2024-10-06 13:23 | disposition home or self-care (01) ==
LOC: HO.LAB 13:22
PROVIDERS: Visit Provider Psychiatry & Neurology Neurology
DX: R41.3 Other amnesia (principal)
CPT/HCPCS: 80048; 82607; 82746; 84443

== ENCOUNTER 2024-10-18 10:36 | Emergency (ER) | payer OTHER, SELFPAY ==
--- NOTE | ~2024-10-18 | CT_ITS ---
EXAMINATION: CT ABDOMEN AND PELVIS WITH CONTRAST CLINICAL INFORMATION: Right lower quadrant pain. COMPARISON: March 15, 2023 TECHNIQUE: Multidetector volumetric images were obtained from the superior aspect of the liver through the pubic symphysis following administration 85 mL of Omnipaque 350 intravenous contrast. Sagittal and coronal reformatted images were obtained on the technologist's workstation. Oral contrast: No This CT examination was performed using dose optimization techniques as appropriate, variously including the following: *Automated exposure control *Adjustment of mA and/or kV according to patient size (this includes techniques or standardized protocols for targeted exams where dose is matched to indication/reason for exam; i.e. extremities or head) *Use of iterative reconstruction technique DLP: 792 mGy centimeter. FINDINGS: LUNG BASES: No acute airspace disease. LIVER, GALLBLADDER, AND BILIARY TREE: Liver measures 18 cm. There is a 2 cm peripheral centripetal discontinuous enhancing lesion in the dome right hepatic lobe. No intrahepatic biliary ductal dilatation. Portal veins, hepatic veins and intrahepatic portion of the IVC are patent. There is a focal faint hypodensity adjacent to the falciform ligament. Cholecystectomy. No extrahepatic biliary ductal dilatation. PANCREAS: No focal lesion. No peripancreatic fluid collection. No main pancreatic ductal dilatation. SPLEEN: 10 cm. No focal lesion. ADRENAL GLANDS: Mild soft tissue fullness. No gross nodular lesion. KIDNEYS AND URETERS: No gross hydronephrosis or nephrolithiasis. No focal renal mass. BLADDER: Fluid-filled. GASTROINTESTINAL TRACT: Appendix is normal. Posterior surgical changes/sutures at the gastroesophageal junction and proximal small bowel loops likely Cole-en-Y procedure. Gas and fluid-filled mildly prominent proximal jejunal loops. No intestinal obstruction pattern. No pneumatosis intestinalis. No pneumoperitoneum. No ascites. No gross intestinal wall thickening. ABDOMINAL WALL: Small fat-containing umbilical hernia. LYMPH NODES: Not enlarged. Prominent mesenteric and retroperitoneum. VASCULAR: No aneurysm or dissection, abdominal aorta. PELVIC VISCERA: Absent uterus. No gross masses in the left adnexa. OSSEOUS STRUCTURES: Status post posterior fusion L4-5 and intervertebral disc spacer placement likely arthrodesis. No acute fracture or gross listhesis. Sclerosis in the left sacroiliac joint. Pseudoarthrosis of the prominent right transverse process of L5 with the sacrum and to a lesser extent on left side.. CT/CT abdomen pelvis w IV con IMPRESSION: Appendix is normal. Hepatomegaly. Hemangiomata, dome right hepatic lobe. Status post Cole-en-Y procedure without overt intestinal obstruction pattern. Small fat-containing umbilical hernia. 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 Fleischner guidelines were followed. Electronically signed by: Graham Riley MD 10/18/2024 02:07 PM EDT
[2024-10-18 11:00] VITALS: BP 108/75; PULSE 69; RESP 18; TEMP 36.7; O2SAT 98; BMI 37.3
--- NOTE | 2024-10-18 11:00 | ED_ITS ---
HPI - General Adult General Chief complaint: Abdominal Pain Stated complaint: Abd pain Time Seen by Provider: 10/18/24 11:59 Source: patient Mode of arrival: ambulatory Limitations: no limitations History of Present Illness ED Provider: Gio Lunsford PA-C HPI narrative: 44 yo female with PMH hysterectomy, cholycystectomyy and gastric bypasss who presents to the ER for evaluation of RLQ Pain that woke her out of sleep this morning at 5am. She reports the pain is worse with movement and better with rest. She reports the pain is burning and tight pain. It is 5/10 at rest and 8/10 with movement. She ate breakfast this morning and had no issues. She denies any constipation or diarrhea. She denies nausea, vomiting, fever, chills, and urinary symptoms. No vaginal discharge. She has been going to the gym more in the last 3 weeks. She went to urgent care this morning who sent her here to r/o appendicitis. MD complaint: RLQ pain Onset (ago): hour(s) Location: abdomen Radiation: non-radiation Severity: moderate Severity scale (1-10): 5 Quality: aching Pain Consistency: constant Relieving factors: rest Exacerbating factors: movement Associated symptoms: denies other symptoms Treatments prior to arrival: none Related Data Allergies Allergy/AdvReac Type Severity Reaction Status Date / Time codeine Allergy Unknown RASH-FACE Verified 10/18/24 11:02 Penicillins Allergy Unknown RASH-FACE Verified 10/18/24 11:02 sulfamethoxazole Allergy Unknown UNKNOWN Verified 10/18/24 11:02 [From Bactrim] trimethoprim [From Bactrim] Allergy Unknown UNKNOWN Verified 10/18/24 11:02 Review of Systems 2 Review of Systems: Yes all other systems are reviewed and are negative [facility] Social History Social History Smoked in Last 30 Days: No Use of substances other than those prescribed or required for medical reasons: No Advance Directives: No Advance Directives Information Provided: Yes Physical Exam ED Vital Signs: Vital Signs - 24 hr 10/18/24 11:00 10/18/24 14:19 10/18/24 15:23 Temperature 98.0 F 97.5 F Pulse Rate 69 55 62 Respiratory Rate 18 14 16 Blood Pressure 108/75 109/71 116/72 Pulse Oximetry 98 98 Oxygen Delivery Method Room Air Room Air Room Air BMI result Body Mass Index 37.3 Appearance: Alert. Oriented X3. No acute distress. Head: normocephalic, atraumatic. Eyes: Pupils equal, round and reactive to light. ENT: Pharynx normal. No tonsillar swelling or exudate. Neck: Normal inspection. Neck supple. CVS: Normal heart rate and rhythm. Pulses normal. Respiratory: No respiratory distress. Breath sounds normal. Abdomen: Soft with right lower quadrant to deep palpation without rebound or guarding, normal active BS x4 Skin: Skin warm and dry. Normal skin color. Normal skin turgor. No rashes. Extremities: No lower extremity edema. No joint swelling. Neuro/psych: Oriented X 3. grossly normal, nonfocal. Normal speech and cognition. Course Course Course Narrative: This is a rapid medical exam performed by Sina Waller NP: Additional HPI, ROS, PE not included below will be deferred to primary provider. Patient is a 44-year-old female presenting from urgent care for evaluation of RLQ abdominal pain since this morning. Denies nausea/vomiting, worse with movement/palpation. Plan: labs, UA Medications Administered Discontinued Medications Generic Name Dose Route Start Last Admin Trade Name Freq PRN Reason Stop Dose Admin Iohexol 85 ml 10/18/24 13:39 10/18/24 13:39 Iohexol 350 Mg/Ml 100 Ml Infus..Btl IV 10/18/24 13:40 85 ml ONCE ONE Administration Ketorolac Tromethamine 30 mg 10/18/24 14:23 10/18/24 14:40 Ketorolac Tromethamine 30 Mg/Ml Vial IVPUSH 10/18/24 14:24 30 mg ONCE ONE Administration Medical Decision Making Medical Decision Making [facility] Narrative: 44-year-old female presents to the ER for evaluation of acute onset of right lower quadrant pain that started this morning at 05:00. It woke her up out of sleep. Sent here from urgent care for further evaluation. On arrival to the ER she was afebrile with normal vital signs, no tachycardia. her exam showed some mild tenderness to deep palpation of the right lower quadrant. Labs are reassuring with white blood cell count of 8. H&H is normal. CT scan of the abdomen and pelvis were done which revealed no acute pathology that would explain her symptoms. No evidence of appendicitis. She was given Toradol with improvement in her symptoms. She is tolerating p.o.. It is possible this is muscular strain and spasm with her recent increase in physical activity and going to the gym. Comfortable discharge home with supportive care, watchful waiting and seeing if this improves with conservative measures. Return precautions were discussed. Stable for DC home Differential Diagnosis Differential Diagnoses: The differential diagnosis associated with the presentation includes acute appendicitis, UTI, muscle strain, diverticulitis, gastroenteritis, ovarian torsion, STI, tubo-ovarian abscess, constipation Admission/Observation Consideration of admission/observation: Escalation of care including admission/observation considered Lab Data MDM Lab Attestation statement: I reviewed the patient's lab results. no leukocytosis, no anemia 10/18/24 11:30 10/18/24 11:30 Labs: Lab Results 10/18/24 Range/Units 11:30 WBC 8.0 (4.8-10.8) X10*3/uL RBC 4.30 (4.20-5.50) X10*6/uL Hgb 13.7 (12.0-16.0) g/dl Hct 39.7 (37.0-47.0) % MCV 92.3 (80.0-98.0) fL MCH 31.9 (27.0-33.0) pg MCHC 34.5 (31.0-35.0) g/dl RDW 13.1 (11.0-16.0) % Plt Count 345 (160-400) X10*3/uL MPV 9.3 L (9.4-12.3) fL Immature Gran % (Auto) 0.3 (0.0-0.4) % Neut % (Auto) 46.6 (45-73) % Lymph % (Auto) 42.6 H (20-40) % [place] % (Auto) 6.8 (2-11) % Eos % (Auto) 3.1 (0-4) % Baso % (Auto) 0.6 (0-2) % Lymph # (Auto) 3.4 (1.2-4.9) X10*3/uL [place] # (Auto) 0.5 (0.1-1.2) X10*3/uL Eos # (Auto) 0.3 (0.0-0.4) X10*3/uL Baso # (Auto) 0.1 (0.0-0.2) X10*3/uL Abs Immat Gran (auto) 0.02 (0.00-0.03) X10*3/uL Absolute Neuts (auto) 3.7 (2.0-8.3) x10*3/uL Absolute Nucleated RBC 0.000 (0.0-0.012) X10*3/uL Nucleated RBC % (auto) 0.0 (0.0-0.2) /100WBC Sodium 139 (135-145) mmol/L Potassium 4.0 (3.3-5.1) mmol/L Chloride 108 (96-108) mmol/L Carbon Dioxide 23 (22-29) mmol/L Anion Gap 12 (12-20) BUN 9 (9-16) mg/dL Creatinine 0.68 (0.5-1.4) mg/dL Estim Creat Clear Calc 118.5 Estimated GFR > 60 Random Glucose 82 (60-115) mg/dL Calcium 9.0 (8.4-10.2) mg/dL Total Bilirubin 0.3 (0.0-1.0) mg/dL AST 72 H (5-31) U/L ALT 139 H (0-31) U/L Alkaline Phosphatase 181 H (39-117) U/L Total Protein 6.8 (6.5-8.0) g/dL Albumin 3.8 (3.5-5.0) g/dL Beta HCG, Quant < 2 mIU/mL Urine Color Dark Yellow Urine Appearance Clear Urine pH 5.5 (5.0-9.0) Ur Specific [place] >= 1.030 H (1.005-1.025) Urine Protein Negative (Neg-Trace) mg/dL Urine Glucose (UA) 100 H (Negative) mg/dL Urine Ketones 15 (Negative) mg/dL Urine Blood Negative (Negative) Urine Nitrite Negative (Negative) Ur Leukocyte Esterase Negative (Negative) Independent Interpretation I performed an independent interpretation of an: CT Scan Interpretation: no appreciated inflammation of the appendix, no colonic stranding Radiology Impression Discussion of test interpretation with radiology: I have reviewed the radiologist's reading. External Record Review External record reviewed: Prior outpatient labs Prescription Management I considered prescription management with: Pain Medication and Antibiotic Critical Care Time Critical Care Time Critical Care Time: No Discharge Plan Discharge Clinical Impression: Abdominal pain Qualifiers: Abdominal location: right lower quadrant Qualified Code(s): R10.31 - Right lower quadrant pain Patient Disposition: Home, Self-Care Instructions: Abdominal Pain (ED) Additional Instructions: your lab workup was unremarkable you CT scan did not show acute abnormalities to explain your pain Your urine test was negative for infection and . You most likely have a viral GI bug also known as gastroenteritis. Recommend rest and plenty of oral hydration. Stick to a bland diet like soup and toast while you are not feeling well. Follow up with your doctor as needed. If you develop new or worsening symptoms call 911 or come back to the ER for further evaluation. Stand Alone Forms: Work/School Release Print Language: Tajik
[2024-10-18 11:35] LABS: MANUAL DIFF FLAG NO
[2024-10-18 11:38] LABS: Appearance Urine Clear; Color Urine Dark Yellow; Glucose Urine UA 100 mg/dL (Negative); Leukocyte Esterase Urine Negative (Negative); Nitrite Urine Negative (Negative); PH 5.5 (5.0-9.0); Specific Gravity - Urine >= 1.030 (1.005-1.025); Urine Blood Negative (Negative); Urine Ketones 15 mg/dL (Negative); Urine Protein Negative (Neg-Trace)
[2024-10-18 11:46] LABS: Basophils Absolute Auto 0.1 X10*3/uL (0.0-0.2); Basophils Percent Auto 0.6 % (0-2); Eosinophils Absolute Auto 0.3 X10*3/uL (0.0-0.4); Eosinophils Percent Auto 3.1 % (0-4); Hematocrit 39.7 % (37.0-47.0); Hemoglobin 13.7 g/dl (12.0-16.0); Imm Gran Abs Auto 0.02 X10*3/uL (0.00-0.03); Imm Gran Pct Auto 0.3 % (0.0-0.4); Lymphocytes Absolute Auto 3.4 X10*3/uL (1.2-4.9); Lymphocytes Percent Auto 42.6 % (20-40); Mean Corpuscular HGB Conc 34.5 g/dl (31.0-35.0); Mean Corpuscular Hemoglobin 31.9 pg (27.0-33.0); Mean Corpuscular Volume 92.3 fL (80.0-98.0); Mean Platelet Volume 9.3 fL (9.4-12.3); Monocytes Absolute Auto 0.5 X10*3/uL (0.1-1.2); Monocytes Percent Auto 6.8 % (2-11); Neutrophils Absolute Auto 3.7 x10*3/uL (2.0-8.3); Neutrophils Percent Auto 46.6 % (45-73); Platelet Count 345 X10*3/uL (160-400); Red Cell Distribution Width 13.1 % (11.0-16.0)
[2024-10-18 12:13] LABS: Alanine Aminotransferase 139 U/L (0-31); Albumin Level 3.8 g/dL (3.5-5.0); Anion Gap 12 (12-20); Aspartate Amino Transferase 72 U/L (5-31); Bilirubin Total 0.3 mg/dL (0.0-1.0); Blood Urea Nitrogen 9 mg/dL (9-16); Carbon Dioxide 23 mmol/L (22-29); Chloride 108 mmol/L (96-108); Creatinine Clr Calc Pharmacy 118.5; Estimated Glomerular Filt Rate > 60; Glucose Random 82 mg/dL (60-115); HCG Quantitative < 2 mIU/mL; Sodium 139 mmol/L (135-145); Total Protein 6.8 g/dL (6.5-8.0)
[2024-10-18 12:51] LABS: Alkaline Phosphatase 181 U/L (39-117)
--- OUTSIDE RECORDS SUMMARY | 2024-10-18 13:09 | XMS_ITS | Clinical Summary ---
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 She was counseled that we would plan for RATLH, BS, cysto. Leave ovaries in place for [...] 5 or 6/10, on an active day 7-810. She has had cortisone injections in the past, did not see good results afterward for pain relief. Ms. Joya had MRI lumbar spine with and without contrast 09/09/2023 at [facility] with postop changes and fusion with hardware [...] - 08/29/2024 11:59 PM EDT Hospital Encounter [facility] CT Scan [address] [place] [id number] Memory loss Discharge Disposition: Home or Self Care 08/24/2024 4:00 PM EDT Office Visit [address] [phone] Can Wall MD Memory loss (Primary Dx) from Last 3 Months Immunizations Name Administration Dates Next Due Influenza trivalent, 0.5mL, preservative free (Fluarix; FluLaval; Fluzone) ages 6mo and older (Afluria) 3 years and older 03/14/2020,02/16/2019 Influenza, Unspecified 03/14/2020 MMR, measles mumps and rubel la Live (Priorix; M-M-R II) 12mo and older 07/28/2018,11/14/2013 PPD Test 07/14/2018, 4,08/10/2013,2010,08/07/2008 Td Tetanus diptheria (Tdvax) 7yo and older 08/18/2018 Tdap Tetanus diptheria acell ular pertussis (Boostrix; Adacel) 7yo and older 08/15/2020,08/07/2008 Surgical History Surgery Date Site/Laterality Comments OTHER SURGICAL HISTORY PROCEDURE: [facility] EXCISION PILONIDAL CYST/SINUS COMPLICATED OTHER SURGICAL HISTORY PROCEDURE: VA PUNCTURE ASPIRATION CYST BREAST EACH ADDL CYST CHOLECYSTECTOMY PROCEDURE: HISTORICAL CHOLECYSTECTOMY TUBAL LIGATION PROCEDURE: HISTORICAL TUBAL LIGATION WISDOM TOOTH EXTRACTION PROCEDURE: HISTORICAL WISDOM TEETH EXTRACTION BREAST SURGERY Right PROCEDURE: VA UNLISTED PROCEDURE BREAST; COMMENT: about 10 yrs ago pt unsure exactly what was done ESOPHAGOGASTRODUODENOSCOPY 08/14/09 PROCEDURE: VA ESOPHAGOGASTRODUODENOSCOPY TRANSORAL DIAGNOSTIC; COMMENT: Schatzki ring, dilated to 50 Lithuanian; hiatus hernia and esophagitis OTHER SURGICAL HISTORY 08/27/10 PROCEDURE: VA EGD DILATION GASTRIC/DUODENAL STRICTURE; COMMENT: Same, dilated to 50 Lithuanian ESOPHAGOGASTRODUODENOSCOPY 07/10/16 PROCEDURE: VA ESOPHAGOGASTRODUODENOSCOPY TRANSORAL DIAGNOSTIC; COMMENT: 1 cm ulcer in vestibule of BII anastomosis; non-critical Schatzki ring and small HH ESOPHAGOGASTRODUODENOSCOPY 07/30/2017 PROCEDURE: VA ESOPHAGOGASTRODUODENOSCOPY TRANSORAL DIAGNOSTIC; COMMENT: 1.5 cm ulcer in vestibule of B11 anastomosis CHOLECYSTECTOMY PROCEDURE: VA LAPAROSCOPY SURG CHOLECYSTECTOMY BACK SURGERY 01/23/2020 Bilateral [...] kidney Hydradenitis 01/04/2018 DX:Hydradenitis; COMMENT: Follows [facility] Tobacco use disorder 10/08/2012 DX:Tobacco use disorder Family History Medical History Relation Name Comments Breast cancer Aunt 1 maternal; age 30s Colon cancer Aunt 2 same aunt with breast cancer Hypertension Brother 1 Coronary artery disease Father late 20's, HTN Hyperlipidemia Father hypertension, valve replacement Other: [...] Care Team (Late st Contact Info) Description 02/02/2025 7:30 AM EDT Appointment Radiology Department - [address] [phone] Health Maintenance Due Date Last Done Comments [...] No significant intracranial abnormality identified. Telerad THEODORE ([id number]) -------- FINAL REPORT -------- Dictated By: Fany Guerrero Dictated Date: 08/29/2024 11:02 ET Assigned Physician: Fany Guerrero Reviewed and Electronically Signed By: Fany Guerrero Signed Date: 08/29/2024 11:04 ET Workstation ID: [id number] Transcribed By: Self Edit Transcribed Date: 08/29/2024 [...] brain without intravenous contrast. DLP: 808.85 mGy/cm dINKpeed VCT Iterative reconstruction technique Findings: Mild generalized [...] Impression: No significant intracranial abnormality identified. Telerad PA ([id number]) -------- FINAL REPORT -------- Dictated By: Fany Guerrero Dictated Date: 08/29/2024 11:02 ET Assigned Physician: Fany Guerrero Reviewed and Electronically Signed By: Fany Guerrero Signed Date: 08/29/2024 11:04 ET Workstation ID: [id number] Transcribed By: Self Edit Transcribed Date: 08/29/2024 [...] Recommendation: Routine annual screening mammography is recommended us Ina Rivera CNM IMG XR PROCEDURES Final Res ult * Hm Cervical Cancer Screening: HPV (11/04/2023) Pathologist [facility] Cervical Cancer Screening: HPV negative abstracted Result [facility] Provider HEALTH MAINTENANCE Final Result * HIV Screening (11/04/2023) [facility] HIV Screening abstracted Result [facility] Provider HEALTH MAINTENANCE Final Result * Hepatitis C Screening (11/04/2023) [facility] Hepatitis C Screening abstracted Result [facility] Provider HEALTH MAINTENANCE Final Result * Lipid panel (08/12/2023) [facility] LDL/HDL Ratio 3 0 - 4 Triglycerides 81 0 - 150 mg/dL Cholesterol 118 0 - 200 mg/dL HDL 43 >=40 mg/dL LDL Cholesterol 59 0 - 100 mg/dL Blood Venous blood specimen / Unknown Result [facility] Provider LAB BLOOD ORDERABLES Lina l Result from Last 3 Months or Most Recently Relevant to Health [place] [id number] [facility] [place]TE MARKS [id number] Care Teams Manufacturing Engineering Technologist Relationship Specialty Start Date End Date Katherine Benitez MD [address] [place] [address] PCP - General 07/18/22
[2024-10-18] MEDS: iohexoL 350 MG/ML 100 ML INFUS..BTL 85 ML IV (13:39)
[2024-10-18 14:19] VITALS: BP 109/71; PULSE 55; RESP 14; TEMP 36.4
[2024-10-18] MEDS: Ketorolac Tromethamine 30 MG/ML VIAL IVPUSH (14:40)
[2024-10-18 15:23] VITALS: BP 116/72; PULSE 62; RESP 16; O2SAT 98
--- NOTE | 2024-10-18 15:29 | PC.NURSE ---
Assumed care of this patient at 1500, patient resting quietly on stretcher at this time, wants to go home, will confirm w/ provider regarding Plan of care.
[2024-10-18 16:15] VITALS: BP 116/72; PULSE 62; RESP 16; TEMP 36.7; O2SAT 98
== END 2024-10-18 16:16 | disposition home or self-care (01) ==
PROVIDERS: Registered Nurse Emergency; Emergency Provider Emergency Medicine; PCP Internal Medicine
DX: R10.31 Right lower quadrant pain (principal); Z90.49 Acquired absence of other specified parts of digestive tract; Z90.710 Acquired absence of both cervix and uterus; Z98.84 Bariatric surgery status
CPT/HCPCS: 36415; 74177; 80053; 81003; 84702; 85025; 96374; 99284; J1885; Q9967

== ENCOUNTER → 2024-10-18 12:07 | Outpatient (BNV) | payer OTHER, SELFPAY | PROVIDERS: Emergency Provider Emergency Medicine; PCP Internal Medicine; Visit Provider Radiology Diagnostic Radiology | DX: D18.03 Hemangioma of intra-abdominal structures (principal); K42.9 Umbilical hernia without obstruction or gangrene; R16.0 Hepatomegaly, not elsewhere classified | CPT/HCPCS: 74177 ==